=== PATIENT | male | born 1950 | race Caucasian/White ===

== ENCOUNTER 2019-08-22 14:25 | Emergency (ER) | payer OTHER ==
[~2019-08-22] VITALS: Ht 177.8 cm; Wt 91.6 kg
[2019-08-22 14:36] VITALS: Ht 177.8 cm; Wt 91.6 kg
[2019-08-22 15:10] VITALS: BP 157/60
== END 2019-08-22 15:10 | disposition home or self-care (01) ==
LOC: ED 14:25
DX: S21.202D Unspecified open wound of left back wall of thorax without penetration into thoracic cavity, subsequent encounter (principal); X58.XXXD Exposure to other specified factors, subsequent encounter